=== PATIENT | male | born 1995 | race Two or more races ===

== ENCOUNTER 2020-08-03 17:42 | Emergency (ER) | payer MEDICAID ==
[~2020-08-03] VITALS: Ht 170.2 cm; Wt 90.7 kg
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
[2020-08-03] MEDS ORDERED: IV NS 1000 ML 1,000 ML IV ONE (18:15)
[2020-08-03] MEDS ORDERED: IV NORMAL SALINE 1000 ML BAG IV ONE (18:15)
--- NOTE | 2020-08-03 18:33 | NUR ---
Pt seen by Dr Gutierrez for MSE.
[2020-08-03] MEDS ORDERED: KETOROLAC TROMETHAMINE 30 MG INJ IM ONE (18:45)
[2020-08-03] MEDS ORDERED: CYCLOBENZAPRINE HCL 10 MG TABLET PO ONE (18:45)
--- NOTE | 2020-08-03 18:53 | NUR ---
Pt left for CT in stable condition.
[2020-08-03] MEDS ORDERED: KETOROLAC TROMETHAMINE 30 MG INJ ONE (18:55)
[2020-08-03] MEDS ORDERED: CYCLOBENZAPRINE HCL 10 MG TABLET ONE (18:55)
--- NOTE | 2020-08-03 19:15 | NUR ---
Pt back from CT scan. Pending results.
[2020-08-03] MEDS ORDERED: FAMO-132 PO (19:49)
[2020-08-03] MEDS ORDERED: CYCL5TAB PO (19:49)
[2020-08-03] MEDS ORDERED: IBUP-1955 PO (19:49)
[2020-08-03] MEDS ORDERED: METH4TAB3 PO (19:49)
--- NOTE | 2020-08-03 20:11 | NUR ---
Patient discharged to home in stable condition. Written and verbal after care instructions given. Patient verbalizes understanding of instructions. Stressed follow up or return to ER for worsening s/s.
[2020-08-03 20:12] VITALS: BP 109/77
== END 2020-08-03 20:12 | disposition home or self-care (01) ==
LOC: ER 17:44
DX: M54.16 Radiculopathy, lumbar region (principal); V49.40XA Driver injured in collision with unspecified motor vehicles in traffic accident, initial encounter; Y92.410 Unspecified street and highway as the place of occurrence of the external cause; M47.896 Other spondylosis, lumbar region; Z79.899 Other long term (current) drug therapy
CPT/HCPCS: 72131; 96372; 99284; J1885; A4663

== ENCOUNTER 2021-06-04 05:59 | Emergency (ER) | payer MEDICAID, OTHER ==
[~2021-06-04] VITALS: Ht 175.3 cm; Wt 95.3 kg
[~2021-06-04 05:59] MED LIST: CYCL5TAB PO; FAMO-132 PO; IBUP-1955 PO; METH4TAB3 PO
[2021-06-04] MEDS ORDERED: IV NORMAL SALINE 1000 ML BAG IV ONE ×2 (06:30→09:45)
[2021-06-04] MEDS ORDERED: ASPIRIN 81 MG TAB.CHEW PO ONE (06:30)
[2021-06-04] MEDS ORDERED: THIAMINE HCL 100 MG TABLET PO ONE (06:30)
[2021-06-04] MEDS ORDERED: HYDROMORPHONE 1 MG/1 ML DISP.SYRIN IV ONE (06:30)
[2021-06-04] MEDS ORDERED: ONDANSETRON 4 MG/2 ML VIAL IV ONE (06:30)
[2021-06-04] MEDS ORDERED: HYDROMORPHONE 1 MG/1 ML DISP.SYRIN ONE (07:12)
[2021-06-04] MEDS ORDERED: ONDANSETRON 4 MG/2 ML VIAL ONE (07:13)
[2021-06-04] MEDS ORDERED: THIAMINE HCL 100 MG TABLET ONE (07:14)
[2021-06-04] MEDS ORDERED: ASPIRIN 81 MG TAB.CHEW ONE (07:14)
[2021-06-04 07:36] LABS: HEMATOCRIT 47.8 % (36.7-47.1); MEAN CORPUSCULAR HEMOGLOBIN 33.8 uug (23.8-33.4); MEAN CORPUSCULAR VOLUME 92.9 fL (73.0-96.2); PLATELET COUNT (AUTO) 201 K/uL (152-348)
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
[2021-06-04 08:06] LABS: ALANINE AMINOTRANSFERASE 84 U/L (16-63); ALKALINE PHOSPHATASE 134 U/L (50-136); ASPARTATE AMINOTRANSFERASE 30 U/L (15-37); BILIRUBIN,DIRECT < 0.1 mg/dL (0.0-0.2); BILIRUBIN,TOTAL 0.5 mg/dL (0.2-1.0); CARBON DIOXIDE 25 mmol/L (21-32); CHLORIDE 102 mmol/L (98-107); GLUCOSE 128 mg/dL (74-106); POTASSIUM 4.1 mmol/L (3.5-5.1); TOTAL PROTEIN, SERUM 8.4 g/dL (6.4-8.2); UREA NITROGEN, BLOOD 14 mg/dL (7-18)
--- NOTE | 2021-06-04 09:18 | NUR ---
Patient is resting comfortably in bed with eyes closed, NAD noted,VSS.
[2021-06-04] MEDS ORDERED: PANTOPRAZOLE SODIUM 40 MG VIAL IV ONE (09:45)
[2021-06-04] MEDS ORDERED: PANTOPRAZOLE SODIUM 40 MG VIAL ONE (10:16)
[2021-06-04] MEDS ORDERED: OMEP40CA21 PO (11:08)
[2021-06-04] MEDS ORDERED: ONDA4TAB5 PO (11:08)
[2021-06-04 11:28] VITALS: BP 121/76
--- NOTE | 2021-06-04 11:28 | NUR ---
IV removed. Catheter intact and site benign. Pressure and 4x4 gauze applied to site. No bleeding noted.
== END 2021-06-04 11:30 | disposition home or self-care (01) ==
LOC: ER 06:00
DX: R07.9 Chest pain, unspecified (principal); K29.20 Alcoholic gastritis without bleeding; F10.10 Alcohol abuse, uncomplicated; R00.1 Bradycardia, unspecified; R03.0 Elevated blood-pressure reading, without diagnosis of hypertension
CPT/HCPCS: 71045; 80048; 80076; 83690; 83735; 84484 ×2; 85025; 85379; 93005 ×2; 96361; 96374; 96375; 99285; C9113; J1170; J2405; 36415; 70030-TC; A4663; J7030

== ENCOUNTER 2021-07-18 08:34 | Emergency (ER) | payer OTHER ==
[~2021-07-18] VITALS: Ht 175.3 cm; Wt 90.7 kg
[~2021-07-18 08:34] MED LIST changes: +OMEP40CA21 PO; +ONDA4TAB5 PO
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
[2021-07-18] MEDS ORDERED: IBUPROFEN 800 MG TABLET PO ONE (09:15)
[2021-07-18] MEDS ORDERED: IBUPROFEN 800 MG TABLET ONE (09:20)
--- NOTE | 2021-07-18 09:20 | NUR ---
Pt taken down for CT via gurney by [employer]. Pt in no acute distress at time of transport.
--- NOTE | 2021-07-18 09:34 | NUR ---
Pt return from CT via [facility] in stable condition. Pt states slight improvement in pain as long as he is lying still. Will await results of CT.
--- NOTE | 2021-07-18 10:10 | NUR ---
Provider at bedside discussing results with pt. Will prepare D/C instructions, Rx, and work note.
[2021-07-18] MEDS ORDERED: HYDR-3980 PO (10:13)
[2021-07-18] MEDS ORDERED: IBUP-1957 PO (10:13)
[2021-07-18 10:21] VITALS: BP 125/77
== END 2021-07-18 10:20 | disposition home or self-care (01) ==
LOC: ER 08:34
DX: M43.6 Torticollis (principal); M62.838 Other muscle spasm; Z87.81 Personal history of (healed) traumatic fracture
CPT/HCPCS: 72125; A4663

== ENCOUNTER 2021-08-11 01:13 | Emergency (ER) | payer OTHER ==
[~2021-08-11] VITALS: Ht 172.7 cm; Wt 93.0 kg
[~2021-08-11 01:13] MED LIST changes: +HYDR-3980 PO; +IBUP-1957 PO
--- NOTE | 2021-08-11 02:17 | NUR ---
Dr Johnson in room 2 for MSE
[2021-08-11] MEDS ORDERED: OXYCODONE/APAP 5-325 MG TABLET PO ONE (02:30)
[2021-08-11 02:42] LABS: HEMATOCRIT 44.9 % (36.7-47.1); PLATELET COUNT (AUTO) 190 K/uL (152-348)
[2021-08-11] MEDS ORDERED: OXYCODONE/APAP 5-325 MG TABLET ONE (02:42)
[2021-08-11 02:57] LABS: CARBON DIOXIDE 27 mmol/L (21-32); CHLORIDE 103 mmol/L (98-107); CREATININE 1.1 mg/dL (0.6-1.3); GLUCOSE 138 mg/dL (74-106); POTASSIUM 3.9 mmol/L (3.5-5.1); UREA NITROGEN, BLOOD 21 mg/dL (7-18)
--- NOTE | 2021-08-11 03:01 | NUR ---
XRAY AT BEDSIDE.
[2021-08-11] MEDS ORDERED: HYDR-3980 PO (03:37)
--- NOTE | 2021-08-11 03:51 | NUR ---
Patient discharged to home in stable condition. Written and verbal after care instructions given. Patient verbalizes understanding of instructions. Stressed follow up or return to ER for worsening s/s. Patient is A/O x4, no SOB, no distress noted
[2021-08-11 03:53] VITALS: BP 131/87
== END 2021-08-11 03:53 | disposition home or self-care (01) ==
LOC: ER 01:15
DX: R07.89 Other chest pain (principal); F10.10 Alcohol abuse, uncomplicated
CPT/HCPCS: 36415; 71045; 84484; 85025; 93005; A4663

== ENCOUNTER 2021-10-26 13:52 | Emergency (ER) | payer OTHER ==
[~2021-10-26] VITALS: Ht 175.3 cm; Wt 90.7 kg
--- NOTE | 2021-10-26 14:00 | NUR ---
Pt was triaged and is waiting in the ER waiting room as there are no ER beds available. The ER is currently saturated.
--- NOTE | 2021-10-26 14:40 | NUR ---
COVID-19 specimens collected and brought to lab.
--- NOTE | 2021-10-26 16:24 | NUR ---
Dr Sigala at the bedside for MSE.
[2021-10-26] MEDS ORDERED: KETOROLAC TROMETHAMINE 15 MG INJ IM ONE (16:30)
[2021-10-26] MEDS ORDERED: ACETAMINOPHEN 325 MG TABLET PO ONE (16:30)
[2021-10-26] MEDS ORDERED: ACETAMINOPHEN 325 MG TABLET ONE (16:33)
[2021-10-26] MEDS ORDERED: KETOROLAC TROMETHAMINE 15 MG INJ ONE (16:34)
[2021-10-26] MEDS ORDERED: IBUP-1955 PO (16:59)
[2021-10-26] MEDS ORDERED: BENZ-13 PO (17:02)
[2021-10-26 17:53] VITALS: BP 112/67
== END 2021-10-26 17:54 | disposition home or self-care (01) ==
LOC: ER 13:52
DX: J10.1 Influenza due to other identified influenza virus with other respiratory manifestations (principal); Z20.822 Contact with and (suspected) exposure to COVID-19
CPT/HCPCS: 36415; 71045; 87400; 87426; 96372; 99284; C9803; J1885; U0003; A4663

== ENCOUNTER 2022-03-26 10:47 | Emergency (ER) | payer OTHER ==
[~2022-03-26] VITALS: Ht 172.7 cm; Wt 97.5 kg
[~2022-03-26 10:47] MED LIST changes: +BENZ-13 PO
[2022-03-26] MEDS ORDERED: ONDANSETRON 4 MG/2 ML VIAL ONE (11:10)
[2022-03-26] MEDS ORDERED: FAMOTIDINE. 20 MG/2 ML VIAL IV ONE ×2 (11:11→11:15)
[2022-03-26] MEDS ORDERED: ONDANSETRON 4 MG/2 ML VIAL IV ONE (11:15)
[2022-03-26] MEDS ORDERED: IV NORMAL SALINE 1000 ML BAG IV ONE (11:15)
[2022-03-26 11:18] LABS: HEMATOCRIT 45.5 % (36.7-47.1); MEAN CORPUSCULAR HEMOGLOBIN 31.6 uug (23.8-33.4); MEAN CORPUSCULAR VOLUME 91.2 fL (73.0-96.2); PLATELET COUNT (AUTO) 235 K/uL (152-348)
--- NOTE | 2022-03-26 11:20 | NUR ---
Pt arrived with c/o nausea and vomiting x3 d/t alcohol intake last night per pt. Denies fall, sob, no diarrhea noted. Pt stated that he tried to eat this morning but could not swallow. Seen by MARIA for MSE.
[2022-03-26 11:23] LABS: *BILIRUBIN,URIN NEGATIVE (NEGATIVE); *BLOOD, URINE NEGATIVE (NEGATIVE); *CLARITY,URINE CLEAR (CLEAR); *COLOR,URINE YELLOW (YELLOW); *KETONES,URINE NEGATIVE (NEGATIVE); *UROBILINOGEN,URINE 0.2 E.U./dl (NORMAL); LEUKOCYTE ESTERASE ,URINE NEGATIVE (NEGATIVE); NITRITE, URINE NEGATIVE (NEGATIVE); UGLUCOSE NEGATIVE (NEGATIVE)
[2022-03-26 11:28] LABS: CREATININE 0.9 mg/dL (0.6-1.3); POTASSIUM 4.6 mmol/L (3.5-5.1)
[2022-03-26 11:33] LABS: BILIRUBIN,DIRECT 0.1 mg/dL (0.0-0.2); BILIRUBIN,TOTAL 0.5 mg/dL (0.2-1.0); TOTAL PROTEIN, SERUM 7.7 g/dL (6.4-8.2)
[2022-03-26] MEDS ORDERED: FAMO-132 PO (12:28)
[2022-03-26] MEDS ORDERED: ONDA4TAB11 PO (12:28)
[2022-03-26 12:51] VITALS: BP 125/75
== END 2022-03-26 12:50 | disposition home or self-care (01) ==
LOC: ER 10:47
DX: R11.2 Nausea with vomiting, unspecified (principal); K29.20 Alcoholic gastritis without bleeding; F10.10 Alcohol abuse, uncomplicated
CPT/HCPCS: 99284; 96374; 96361; 96375; 80076; 80048; 81003; 83690; 83735; 85025; 36415; J3490; J2405; J7040; A4663

== ENCOUNTER 2022-11-12 16:55 | Emergency (ER) | payer OTHER ==
[~2022-11-12] VITALS: Ht 172.7 cm; Wt 97.5 kg
[~2022-11-12 16:55] MED LIST changes: +ONDA4TAB11 PO
--- NOTE | 2022-11-12 17:16 | NUR ---
Patient drove himself to the ER with c/o nausea and dizziness that started today. Informed of plan of care, placed on monitor, #20g established in left ac, blood collected and sent to lab. No s/s of any distress noted at this time. Patient awaiting ER provider exam.
--- NOTE | 2022-11-12 17:24 | NUR ---
ER provider at bedside for exam.
[2022-11-12] MEDS ORDERED: IV NORMAL SALINE 1000 ML BAG IV ONE (17:30)
[2022-11-12 17:56] LABS: HEMATOCRIT 50.2 % (36.7-47.1); MEAN CORPUSCULAR HEMOGLOBIN 32.1 uug (23.8-33.4); MEAN CORPUSCULAR VOLUME 92.7 fL (73.0-96.2); PLATELET COUNT (AUTO) 212 K/uL (152-348)
--- NOTE | 2022-11-12 17:57 | NUR ---
Patient has returned from ct, awaiting results, placed back on monitor.
[2022-11-12] MEDS ORDERED: LORAZEPAM 2 MG/1 ML VIAL IV ONE (18:00)
[2022-11-12 18:01] LABS: *BILIRUBIN,URIN NEGATIVE (NEGATIVE); *BLOOD, URINE NEGATIVE (NEGATIVE); *CLARITY,URINE CLEAR (CLEAR); *COLOR,URINE YELLOW (YELLOW); *KETONES,URINE NEGATIVE (NEGATIVE); *UROBILINOGEN,URINE 0.2 E.U./dl (NORMAL); LEUKOCYTE ESTERASE ,URINE NEGATIVE (NEGATIVE); NITRITE, URINE NEGATIVE (NEGATIVE); UGLUCOSE NEGATIVE (NEGATIVE)
[2022-11-12 18:13] LABS: CARBON DIOXIDE 25 mmol/L (21-32); CHLORIDE 104 mmol/L (98-107); CREATININE 1.1 mg/dL (0.6-1.3); GLUCOSE 129 mg/dL (74-106); UREA NITROGEN, BLOOD 13 mg/dL (7-18)
[2022-11-12] MEDS ORDERED: LORAZEPAM 2 MG/1 ML VIAL ONE (18:19)
[2022-11-12 18:21] LABS: ALANINE AMINOTRANSFERASE 132 U/L (16-63); ALKALINE PHOSPHATASE 76 U/L (50-136); ASPARTATE AMINOTRANSFERASE 42 U/L (15-37); BILIRUBIN,DIRECT 0.1 mg/dL (0.0-0.2); BILIRUBIN,TOTAL 0.7 mg/dL (0.2-1.0); TOTAL PROTEIN, SERUM 8.2 g/dL (6.4-8.2)
[2022-11-12 18:23] LABS: ACETAMINOPHEN < 2.0 ug/mL (10-30)
[2022-11-12 18:28] LABS: RBC,URINE 0-3 /HPF (0-3)
[2022-11-12 18:29] LABS: WBC,URINE 0-3 /HPF (0-3)
[2022-11-12 18:39] LABS: *AMPHETAMINE, URINE NEGATIVE (NEGATIVE); *CANNABINOID, URINE NEGATIVE (NEGATIVE); *COCCAINE, URINE NEGATIVE (NEGATIVE); *PHENCYCLIDINE SCREEN,URINE NEGATIVE (NEGATIVE)
--- NOTE | 2022-11-12 23:37 | NUR ---
Patient discharged to home in stable condition. Written and verbal after care instructions given. Patient verbalizes understanding of instructions. Stressed follow up or return to ER for worsening s/s. Patsy walked out with steady gait.
[2022-11-13 00:33] VITALS: BP 139/98
== END 2022-11-12 23:45 | disposition home or self-care (01) ==
LOC: ER 16:55
DX: R42 Dizziness and giddiness (principal); R11.2 Nausea with vomiting, unspecified; I95.1 Orthostatic hypotension; Z79.1 Long term (current) use of non-steroidal anti-inflammatories (NSAID); Z79.899 Other long term (current) drug therapy
CPT/HCPCS: 80076; 80048; 81001; 85025; 85730; 84484; 36415; 70450; 99285; 96361; 96374; 80299; 80320; 80307; J2060; J7040 ×2; A4663; G0480